=== PATIENT | female | born 1955 | race Caucasian/White ===

== ENCOUNTER → 2023-12-18 | Outpatient (CLI) | payer OTHER | END | disposition home or self-care (01) | LOC: SHCH 14:43 | PROVIDERS: ATTEND Internal Medicine Cardiovascular Disease | DX: I35.0 Nonrheumatic aortic (valve) stenosis (principal); R01.1 Cardiac murmur, unspecified; I51.7 Cardiomegaly | CPT/HCPCS: 93306; 93880 ==

== ENCOUNTER 2024-04-08 08:38 | Day surgery (SDC) | payer OTHER ==
[~2024-04-08] VITALS: Ht 154.9 cm; Wt 99.8 kg
[2024-04-08] VITALS (10 sets, daily range): BP systolic 103–160; BP diastolic 51–90; PULSE 52–62; RESP 15–18
[~2024-04-08 08:38] MED LIST: ASPI-1026 PO; CHLO25TA3 PO; CHOL400T4 PO; LOSA25TA41 PO; OMEP20TA20 PO; PRAV40TA3 PO; VERA180T60 PO
[2024-04-08] MEDS: 0.9%NACL 1000ML 1,000 ML IV ONE (10:50)
[2024-04-08] MEDS ORDERED: PROPOFOL 10 MG/ML 20ML VIAL IV ONE ×2 (11:00)
== END 2024-04-08 12:20 | disposition home or self-care (01) ==
LOC: ENDO 08:38 → DAH 08:38 → ENDO 12:20
PROVIDERS: ATTEND Internal Medicine Gastroenterology
DX: D50.9 Iron deficiency anemia, unspecified (principal); K57.30 Diverticulosis of large intestine without perforation or abscess without bleeding; K64.0 First degree hemorrhoids; E78.9 Disorder of lipoprotein metabolism, unspecified; R12 Heartburn; I10 Essential (primary) hypertension; M19.90 Unspecified osteoarthritis, unspecified site; Z79.82 Long term (current) use of aspirin; Z79.899 Other long term (current) drug therapy; Z90.49 Acquired absence of other specified parts of digestive tract; Z98.84 Bariatric surgery status; Z88.8 Allergy status to other drugs, medicaments and biological substances
CPT/HCPCS: 45378; J7030 ×2; J2704 ×2; A4620; A4215; A4223; A7002; A4222; A4221; A4663; A4606; J3490

== ENCOUNTER → 2025-02-03 | Outpatient (CLI) | payer OTHER ==
[2025-02-03] MEDS: REGADENOSON 0.4 MG/5 ML PF SYG IVP ONE (12:24)
--- NOTE | 2025-02-04 08:30 | HMCSR ---
APPROVED REPORT Height: 5 ft 1in Weight: 218 lbs TEST INDICATIONS Hypertension/HDD The imaging protocol used to acquire images was Rest Tc-99m/stress Tc-99m 1 day Consent: The procedure was explained and understood by the patient. Informerd consent was witnessed Marcos GREGORY RN First, low dose rest was performed then high dose stress. RESTING DATA: The resting ekg shows: NSR Rest SPECT myocardial perfusion imaging was performed in supine position 81 minutes following the int ravenous injection of 10.5 mCi of Tc-99 Sestamibi. Time of rest injection: 09:14: Date: 02/03/2025 Time of rest imagin:35: Date: 02/03/2025 PHARMACOLOGIC STRESS: Pharmacologic stress test was performed by injecting regadenoson 0.4 mg IV push followed by the intra venous injection of 31.4 mCi of Tc-99 Sestamibi. Time of stress injection: 11:13: Date: 02/03/2025 Time of stress imagin:30: Date: 02/03/2025 Heart Rate at time of stress injection: 57 bpm. Gated Stress SPECT was performed 77 minutes after stress injection. The images were gated to evaluate regional wall motion and calculate left ventricular ejection fracti on. STRESS DETAILS Reason for Termination: Infusion complete Stress Symptoms: Dyspnea Max HR Achieved: 74 bpm % of APMHR Achieved: 49 Max Blood Pressure: 144/72 mmHg Stress ECG: NSR Conclusion No ischemia Inferior infract vs diaphragm attenuation artifact LV ejection fraction 65% Mild hypokinesis of the inferior base Normal LV size at rest and stress No increased lung uptake
== END | disposition home or self-care (01) ==
LOC: SHCH 08:32
PROVIDERS: ATTEND Internal Medicine Cardiovascular Disease
DX: I10 Essential (primary) hypertension (principal); I77.9 Disorder of arteries and arterioles, unspecified; R06.00 Dyspnea, unspecified; Z79.899 Other long term (current) drug therapy
CPT/HCPCS: 78452; 93017; J2785; A9500 ×2